=== PATIENT | female | born 2000 | race Hispanic/Latino ===

== ENCOUNTER 2023-03-12 21:36 | Day surgery (SDC) ==
[2023-03-12 22:44] VITALS: BMI 33.5
[2023-03-12 23:25] LABS: Bilirubin Neg (Negative); Blood, Urine Negative (Negative); Clarity Clear (Clear); Glucose, Urine (Dipstick) Normal (Negative); Ketone, Urine 5 mg/dL (Negative); Leukocyte Negative (Negative); Nitrite Negative (Negative); Protein, Urine (Dipstick) Negative (Neg-Trace); Specific Gravity, Urine 1.005 (1.005-1.030); Urobilinogen Normal mg/dL (Less than 2)
[2023-03-12 23:54] LABS: CAUTI Indications for Culture Pregnancy; RBC/HPF None Seen HPF (0-3); Squamous Epithelial 0-3 HPF (0-3); WBC/HPF 0-3 HPF (0-3)
[2023-03-12 23:55] LABS: Bacteria/HPF None Seen HPF (None Seen); Urine Culture Reflex Yes Yes
[2023-03-12] MEDS ORDERED: Lactated Ringer's 1,000 ML IV SCH (23:59)
== END 2023-03-13 01:20 | disposition home or self-care (01) ==
LOC: CSHLD/OP 21:36
PROVIDERS: ATTEND Family Medicine
DX: O99.891 Other specified diseases and conditions complicating pregnancy (principal); R10.30 Lower abdominal pain, unspecified; Z3A.34 34 weeks gestation of pregnancy
CPT/HCPCS: 81001; 87086; 87480; 87510; 87660

== ENCOUNTER 2023-05-17 11:13 | Inpatient (IN) | payer MEDICAID, OTHER ==
[2023-05-17 11:47] VITALS: BMI 34.5
[2023-05-17] MEDS: Lactated Ringer's 1,000 ML IV SCH (12:02)
[2023-05-17] MEDS ORDERED: Tranexamic Acid 1,000 MG/10 ML VIAL IVP PRN (12:31)
[2023-05-17] MEDS ORDERED: HYDROcodone/Acetaminophen 5/325 mg Tablet PO PRN (12:31)
[2023-05-17] MEDS ORDERED: Promethazine HCl 25 MG/ML VIAL IM PRN ×2 (12:31→19:56)
[2023-05-17] MEDS ORDERED: Acetaminophen 500 MG TAB PO PRN (12:31)
[2023-05-17] MEDS ORDERED: Diphenoxylate HCl/Atropine Tablet PO PRN (12:31)
[2023-05-17] MEDS ORDERED: fentaNYL 50 mcg/mL 1 mL Vial SLOW IVP PRN (12:31)
[2023-05-17] MEDS ORDERED: hydrALAZINE 20 MG/ML VIAL SLOW IVP PRN (12:31)
[2023-05-17] MEDS ORDERED: Misoprostol 200 MCG TAB PR PRN (12:31)
[2023-05-17] MEDS ORDERED: Carboprost 250 MCG/ML AMP IM PRN (12:31)
[2023-05-17] MEDS ORDERED: Methylergonovine 0.2 MG/ML VIAL IM PRN (12:31)
[2023-05-17] MEDS ORDERED: Lidocaine 1% (PF) 30 ML VIAL SC PRN (12:31)
[2023-05-17] MEDS ORDERED: Ondansetron PF 4 MG/2 ML Vial IVP PRN ×2 (12:31→19:56)
[2023-05-17] MEDS ORDERED: Ibuprofen 800 MG TAB PO PRN (12:31)
[2023-05-17 12:42] LABS: Hematocrit 37.4 % (34.9-44.5); Hemoglobin 12.8 g/dL (12.0-15.5); Mean Corpuscular HGB CONC 34.2 g/dL (32.0-36.0); Mean Corpuscular Hemoglobin 29.5 pg (27.0-33.0); Mean Corpuscular Volume 86.2 fl (81.6-98.3); Mean Platelet Volume 12.8 fl (7.4-10.4); Platelet Count 153 10x3/uL (150-450); RBC Distribution Width 14.1 % (11.5-14.5); Red Blood Cell (RBC) Count 4.34 10x6/uL (3.90-5.03); White Blood Cell (WBC) Count 8.4 10x3/uL (3.5-10.5)
[2023-05-17] MEDS ORDERED: Oxytocin 30 units/NS 500 ML 500 ML IV SCH ×3 (12:45)
[2023-05-17 13:16] LABS: Syphilis Antibody Nonreactive (Nonreactive); Syphilis Antibody Index 0.04 S/CO (<1.00 Non-Reactive)
[2023-05-17 13:18] LABS: HBSAg Index 0.17 S/CO (0-0.99); Hep B Surf Ag - L&D Non-Reactive S/CO (NonReactive)
[2023-05-17] MEDS ORDERED: Bupivacaine 0.25% HCL 30 ML VIAL ONE (14:04)
[2023-05-17] MEDS ORDERED: fentaNYL/Ropivacaine Epidural 100 ML ONE (18:46)
[2023-05-17] MEDS ORDERED: diphenhydrAMINE 50 MG/ML VIAL IVP PRN (19:56)
[2023-05-17] MEDS ORDERED: Moisturizing Cream (Eucerin) 113 GM JAR TOP PRN (19:56)
[2023-05-17] MEDS ORDERED: Lactated Ringer's 500 ML IV PRN (19:56)
[2023-05-17] MEDS ORDERED: Naloxone HCl 0.4 mg/ml Vial IVP PRN ×2 (19:56)
[2023-05-17] MEDS ORDERED: ePHEDrine Sulfate 50 MG/10 ML VIAL SLOW IVP PRN (19:56)
[2023-05-17] MEDS ORDERED: Acetaminophen 325 MG TAB PO PRN (19:56)
[2023-05-17] MEDS ORDERED: fentaNYL 2 mcg/Ropivacaine 0.2% Epidural 100 ML CADD EPIDURAL SCH (20:00)
[2023-05-17] MEDS ORDERED: Communication Order-Pharmacy FS SCH (20:00)
[2023-05-18] MEDS ORDERED: Bisacodyl 10 MG SUPP PR PRN (07:28)
[2023-05-18] MEDS ORDERED: HYDROcodone/Acetaminophen 5/325 mg Tablet PO PRN (07:28)
[2023-05-18] MEDS ORDERED: diphenhydrAMINE 25 MG CAP PO PRN (07:28)
[2023-05-18] MEDS ORDERED: Promethazine HCl 25 MG/ML VIAL IM PRN (07:28)
[2023-05-18] MEDS ORDERED: Ondansetron PF 4 MG/2 ML Vial IVP PRN (07:28)
[2023-05-18] MEDS ORDERED: hydrALAZINE 20 MG/ML VIAL SLOW IVP PRN (07:28)
[2023-05-18] MEDS ORDERED: Benzocaine-Menthol 82.5 ML CAN TOP PRN (07:28)
[2023-05-18] MEDS ORDERED: Boostrix 0.5 ML (Tdap) VIAL (>/=7 yrs of age) IM ONE (07:28)
[2023-05-18] MEDS ORDERED: Milk Of Magnesia 30 ML UDCUP PO PRN (07:28)
[2023-05-18] MEDS ORDERED: Lanolin Ointment 7 GM TUBE TOP PRN (07:28)
[2023-05-18] MEDS: Prenatal Vitamin 1 TAB PO SCH (09:01)
[2023-05-18] MEDS: Docusate 100 MG CAP PO SCH ×2 (09:01→21:37)
[2023-05-18] MEDS: Ibuprofen 800 MG TAB PO SCH ×2 (09:01→15:27)
[2023-05-18] MEDS: Ferrous Sulfate 325 MG TAB PO SCH ×2 (09:06→18:24)
[2023-05-18] MEDS: Lactated Ringer's 1,000 ML IV SCH (10:12)
[2023-05-19] MEDS: Ibuprofen 800 MG TAB PO SCH ×2 (00:08→08:16)
[2023-05-19] MEDS: Docusate 100 MG CAP PO SCH (08:16)
[2023-05-19] MEDS: Prenatal Vitamin 1 TAB PO SCH (08:16)
[2023-05-19 09:02] VITALS: BP 117/70; TEMP 97.9
[2023-05-19] MEDS: Ferrous Sulfate 325 MG TAB PO SCH (13:38)
== END 2023-05-19 16:45 | disposition home or self-care (01) | DRG 806 ==
LOC: CSHLD 11:13 → CSHPP 05-18 08:20
PROVIDERS: ADMIT Family Medicine; ATTEND Family Medicine
PROC: 10E0XZZ Delivery of Products of Conception, External Approach (ICD-10-PCS; principal; 2023-05-18)
PROC: 10907ZC Drainage of Amniotic Fluid, Therapeutic from Products of Conception, Via Natural or Artificial Opening (ICD-10-PCS; 2023-05-18)
PROC: 0UQMXZZ Repair Vulva, External Approach (ICD-10-PCS; 2023-05-18)
PROC: 0UQGXZZ Repair Vagina, External Approach (ICD-10-PCS; 2023-05-18)
PROC: 3E033VJ Introduction of Other Hormone into Peripheral Vein, Percutaneous Approach (ICD-10-PCS; 2023-05-18)
DX: O99.214 Obesity complicating childbirth (principal); O41.03X0 Oligohydramnios, third trimester, not applicable or unspecified; Z37.0 Single live birth; Z3A.39 39 weeks gestation of pregnancy; E66.9 Obesity, unspecified; O70.0 First degree perineal laceration during delivery; O69.81X0 Labor and delivery complicated by cord around neck, without compression, not applicable or unspecified
CPT/HCPCS: 36415; 85027; 86780; 86850; 86870; 86880; 86900; 86901; 86905; 86922; 87340; J0665; J2590; J3010; J7120

== ENCOUNTER 2023-07-19 20:49 | Inpatient (IN) | payer MEDICAID ==
[2023-07-19 22:07] LABS: Bilirubin Neg (Negative); Blood, Urine Negative (Negative); Clarity Clear (Clear); Glucose, Urine (Dipstick) Normal (Negative); Leukocyte Negative (Negative); Nitrite Negative (Negative); Protein, Urine (Dipstick) Negative (Neg-Trace); Urobilinogen Normal mg/dL (Less than 2)
[2023-07-19] MEDS ORDERED: Morphine 4 MG/ML VIAL ONE (22:18)
[2023-07-19] MEDS ORDERED: Ondansetron PF 4 MG/2 ML Vial ONE (22:18)
[2023-07-19] MEDS ORDERED: Pantoprazole 40 MG VIAL ONE (22:19)
[2023-07-19 22:39] LABS: Bacteria/HPF None Seen HPF (None Seen); CAUTI Indications for Culture Dysuria,urgency,freq; RBC/HPF None Seen HPF (0-3); Squamous Epithelial 0-3 HPF (0-3); Urine Culture Reflex No No; WBC/HPF None Seen HPF (0-3)
[2023-07-19 22:50] LABS: #Basophils 0.05 10x3/uL (0.0-0.2); #Eosinphils 0.18 10x3/uL (0.0-0.5); #Monocytes 0.46 10x3/uL (0.0-1.1); #Neutrophils 3.58 10x3/uL (1.5-8.4); %Basophils 0.9 % (0.0-2.0); %Eosinophils 3.1 % (0.0-6.0); %Lymphocytes 25.2 % (18.0-47.0); %Neutrophils 62.1 % (40.0-75.0); Hematocrit 38.5 % (34.9-44.5); Hemoglobin 13.4 g/dL (12.0-15.5); Mean Corpuscular HGB CONC 34.8 g/dL (32.0-36.0); Mean Corpuscular Hemoglobin 29.8 pg (27.0-33.0); Mean Corpuscular Volume 85.6 fl (81.6-98.3); Mean Platelet Volume 10.5 fl (7.4-10.4); Platelet Count 231 10x3/uL (150-450); RBC Distribution Width 13.1 % (11.5-14.5); White Blood Cell (WBC) Count 5.8 10x3/uL (3.5-10.5)
[2023-07-19] MEDS ORDERED: Meropenem 1 GM VIAL ONE (23:00)
[2023-07-19 23:11] LABS: Specific Gravity, Urine 1.005 (1.005-1.030)
[2023-07-19 23:12] LABS: Ketone, Urine 15 mg/dL (Negative)
[2023-07-19 23:13] LABS: BHCG - Serum Negative (NEGATIVE); Pregs Control Background? CLEAR/WHITE (CLR/WHITE); Pregs Control Bar Appear? YES (CONTROL BAR)
[2023-07-19 23:15] LABS: ALT (SGPT) 532 U/L (8-55); AST (SGOT) 217 U/L (5-34); Alkaline Phosphatase 221 U/L (40-110); Anion Gap 15 mmol/L (10-20); BUN (Urea Nitrogen) 5 mg/dL (7.0-18.7); Bilirubin, Total 3.9 mg/dL (0.2-1.2); Calc. Creatinine Clearance 0 mL/min (70-130); Calcium 9.5 mg/dL (7.8-10.44); Carbon Dioxide 23 mmol/L (22-29); Chloride 106 mmol/L (98-107); Estimated GFR 123; Globulin 3.7 g/dL (2.4-3.5); Glucose 92 mg/dL (70-105); Lipase 31 U/L (8-78); Potassium 3.6 mmol/L (3.5-5.1); Protein, Total 7.7 g/dL (6.0-8.3); Sodium 140 mmol/L (136-145)
[2023-07-20 01:05] VITALS: BMI 30.9
[2023-07-20] MEDS ORDERED: Morphine 4 MG/ML VIAL SLOW IVP PRN (01:44)
[2023-07-20] MEDS ORDERED: Ondansetron PF 4 MG/2 ML Vial IVP PRN (01:44)
[2023-07-20 04:31] LABS: ALT (SGPT) 432 U/L (8-55); AST (SGOT) 158 U/L (5-34); Alkaline Phosphatase 190 U/L (40-110); Anion Gap 11 mmol/L (10-20); BUN (Urea Nitrogen) 4 mg/dL (7.0-18.7); Bilirubin, Total 2.2 mg/dL (0.2-1.2); Calc. Creatinine Clearance 166 mL/min (70-130); Calcium 8.9 mg/dL (7.8-10.44); Carbon Dioxide 24 mmol/L (22-29); Chloride 110 mmol/L (98-107); Estimated GFR 123; Glucose 88 mg/dL (70-105); Magnesium 1.8 mg/dL (1.6-2.6); Potassium 3.9 mmol/L (3.5-5.1); Sodium 141 mmol/L (136-145)
[2023-07-20 04:42] LABS: #Basophils 0.04 10x3/uL (0.0-0.2); #Eosinphils 0.19 10x3/uL (0.0-0.5); #Monocytes 0.51 10x3/uL (0.0-1.1); #Neutrophils 2.78 10x3/uL (1.5-8.4); %Basophils 0.7 % (0.0-2.0); %Eosinophils 3.5 % (0.0-6.0); %Lymphocytes 35.2 % (18.0-47.0); %Monocytes 9.3 % (0.0-10.0); %Neutrophils 50.6 % (40.0-75.0); Hematocrit 38.4 % (34.9-44.5); Hemoglobin 12.8 g/dL (12.0-15.5); Mean Corpuscular HGB CONC 33.3 g/dL (32.0-36.0); Mean Corpuscular Hemoglobin 28.9 pg (27.0-33.0); Mean Corpuscular Volume 86.7 fl (81.6-98.3); Mean Platelet Volume 10.4 fl (7.4-10.4); Platelet Count 232 10x3/uL (150-450); RBC Distribution Width 13.2 % (11.5-14.5); Red Blood Cell (RBC) Count 4.43 10x6/uL (3.90-5.03); White Blood Cell (WBC) Count 5.5 10x3/uL (3.5-10.5)
[2023-07-20] MEDS: 1/2 NS w/Potassium 20 mEq 1,000 ML IV SCH (05:25)
[2023-07-20] MEDS: Morphine 2 MG/ML VIAL SLOW IVP PRN (09:21)
[2023-07-20] MEDS: Piperacillin/Tazobactam 3.375 GM in Sodium Chloride 0.9% 100 ML IVPB SCH ×2 (14:38→18:50)
[2023-07-20] MEDS: Enoxaparin 40 MG (0.4 mL) SYRINGE SC SCH (14:49)
[2023-07-21 04:36] LABS: #Basophils 0.03 10x3/uL (0.0-0.2); #Eosinphils 0.25 10x3/uL (0.0-0.5); #Monocytes 0.48 10x3/uL (0.0-1.1); #Neutrophils 2.36 10x3/uL (1.5-8.4); %Basophils 0.5 % (0.0-2.0); %Eosinophils 4.6 % (0.0-6.0); %Lymphocytes 42.4 % (18.0-47.0); %Monocytes 8.8 % (0.0-10.0); %Neutrophils 43.2 % (40.0-75.0); Hemoglobin 12.1 g/dL (12.0-15.5); Mean Corpuscular HGB CONC 33.6 g/dL (32.0-36.0); Mean Corpuscular Hemoglobin 29.4 pg (27.0-33.0); Mean Corpuscular Volume 87.4 fl (81.6-98.3); Mean Platelet Volume 10.4 fl (7.4-10.4); Platelet Count 217 10x3/uL (150-450); RBC Distribution Width 13.5 % (11.5-14.5); Red Blood Cell (RBC) Count 4.12 10x6/uL (3.90-5.03); White Blood Cell (WBC) Count 5.5 10x3/uL (3.5-10.5)
[2023-07-21 04:48] LABS: ALT (SGPT) 329 U/L (8-55); AST (SGOT) 110 U/L (5-34); Albumin 3.3 g/dL (3.5-5.0); Alkaline Phosphatase 172 U/L (40-110); Anion Gap 11 mmol/L (10-20); BUN (Urea Nitrogen) 4 mg/dL (7.0-18.7); Bilirubin, Total 2.4 mg/dL (0.2-1.2); Calc. Creatinine Clearance 168 mL/min (70-130); Calcium 8.9 mg/dL (7.8-10.44); Carbon Dioxide 25 mmol/L (22-29); Chloride 107 mmol/L (98-107); Estimated GFR 125; Glucose 91 mg/dL (70-105); Potassium 3.9 mmol/L (3.5-5.1); Protein, Total 6.3 g/dL (6.0-8.3); Sodium 139 mmol/L (136-145)
[2023-07-21] MEDS ORDERED: PROPOFOL 0 ML ONE (07:29)
[2023-07-21] MEDS ORDERED: PROPOFOL 40 ML ONE (07:30)
[2023-07-21] MEDS ORDERED: fentaNYL 50 mcg/mL 1 mL Vial ONE ×2 (07:30→08:58)
[2023-07-21] MEDS ORDERED: PROPOFOL 20 ML ONE (07:31)
[2023-07-21] MEDS ORDERED: Lidocaine 1% PF 5 ML VIAL ONE (08:02)
[2023-07-21] MEDS ORDERED: Rocuronium Bromide 10 MG/ML (10ML VIAL) ONE (08:03)
[2023-07-21] MEDS ORDERED: SUGAMMADEX SODIUM 200 MG/2 ML VIAL ONE (08:06)
[2023-07-21] MEDS ORDERED: PHENYLEPHRINE-NS 100 MCG/ML 10 ML SYRINGE ONE (08:42)
[2023-07-21] MEDS ORDERED: Ondansetron PF 4 MG/2 ML Vial ONE (08:52)
[2023-07-21] MEDS ORDERED: Dexamethasone 4 mg/ml Vial ONE (08:52)
[2023-07-22 04:48] LABS: #Basophils 0.04 10x3/uL (0.0-0.2); #Eosinphils 0.13 10x3/uL (0.0-0.5); #Monocytes 0.49 10x3/uL (0.0-1.1); #Neutrophils 4.65 10x3/uL (1.5-8.4); %Basophils 0.5 % (0.0-2.0); %Eosinophils 1.8 % (0.0-6.0); %Lymphocytes 27.7 % (18.0-47.0); %Monocytes 6.6 % (0.0-10.0); %Neutrophils 62.7 % (40.0-75.0); Hematocrit 37.2 % (34.9-44.5); Hemoglobin 12.5 g/dL (12.0-15.5); Mean Corpuscular HGB CONC 33.6 g/dL (32.0-36.0); Mean Corpuscular Hemoglobin 28.9 pg (27.0-33.0); Mean Corpuscular Volume 85.9 fl (81.6-98.3); Mean Platelet Volume 10.1 fl (7.4-10.4); Platelet Count 245 10x3/uL (150-450); RBC Distribution Width 13.4 % (11.5-14.5); Red Blood Cell (RBC) Count 4.33 10x6/uL (3.90-5.03); White Blood Cell (WBC) Count 7.4 10x3/uL (3.5-10.5)
[2023-07-22 04:53] LABS: ALT (SGPT) 252 U/L (8-55); AST (SGOT) 55 U/L (5-34); Albumin 3.4 g/dL (3.5-5.0); Alkaline Phosphatase 148 U/L (40-110); Anion Gap 11 mmol/L (10-20); BUN (Urea Nitrogen) 5 mg/dL (7.0-18.7); Bilirubin, Total 1.2 mg/dL (0.2-1.2); Calc. Creatinine Clearance 166 mL/min (70-130); Calcium 8.9 mg/dL (7.8-10.44); Carbon Dioxide 26 mmol/L (22-29); Chloride 107 mmol/L (98-107); Estimated GFR 123; Globulin 3.2 g/dL (2.4-3.5); Glucose 95 mg/dL (70-105); Potassium 3.7 mmol/L (3.5-5.1); Protein, Total 6.6 g/dL (6.0-8.3); Sodium 140 mmol/L (136-145)
[2023-07-22] MEDS: Sodium Chloride 0.9% 1,000 ML IV SCH (09:20)
[2023-07-22 10:57] VITALS: BP 124/72; TEMP 97.6
== END 2023-07-22 11:19 | disposition home or self-care (01) | DRG 446 ==
LOC: CSHERS 20:49 → CSHTELE 07-20 00:52
PROVIDERS: ADMIT Family Medicine; ATTEND Internal Medicine
PROC: 0FC98ZZ Extirpation of Matter from Common Bile Duct, Via Natural or Artificial Opening Endoscopic (ICD-10-PCS; principal; 2023-07-21)
PROC: 0W3P8ZZ Control Bleeding in Gastrointestinal Tract, Via Natural or Artificial Opening Endoscopic (ICD-10-PCS; 2023-07-21)
DX: K80.50 Calculus of bile duct without cholangitis or cholecystitis without obstruction (principal); E66.9 Obesity, unspecified; R79.89 Other specified abnormal findings of blood chemistry; Z68.31 Body mass index [BMI] 31.0-31.9, adult
CPT/HCPCS: 36415; 74330; 76705; 80048; 80053; 81001; 82247; 83690; 83735; 84075; 84450; 84460; 84703; 85025; 96365; 96375; C1725; C9113; J1100; J1650; J2185; J2270; J2272; J2405; J2543; J2704; J3010; J3480; J3490; J7050